=== PATIENT | male | born 1975 | race Caucasian/White ===

== ENCOUNTER 2019-01-16 09:37 | Outpatient (REF) | payer MEDICAID, SELFPAY ==
[2019-01-16 12:22] LABS: ALT 24 U/L (12-78); AST 14 U/L (15-37); Albumin 3.7 g/dL (3.4-5.0); Alkaline Phosphatase 99 U/L (46-116); Anion Gap 8.9 mmol/L (3-11); BUN 19 mg/dL (7-18); Bilirubin, Total 0.4 mg/dL (0.2-1.0); CO2 27.1 mmol/L (21.0-32.0); Calcium 8.6 mg/dL (8.5-10.1); Calculated LDL 114 mg/dL; Chloride 106 mmol/L (98-107); Cholesterol 176 mg/dL (50-200); Glucose 87 mg/dL (70-100); HDL Cholesterol 43 mg/dL (40-60); Potassium 4.4 mmol/L (3.5-5.1); Sodium 142 mmol/L (136-145); Total Protein 6.7 g/dL (6.4-8.2); Triglyceride 97 mg/dL (30-150)
== END 2019-01-16 09:57 ==
LOC: NCHCN 09:37
PROVIDERS: PCP Internal Medicine; Visit Provider Family Medicine
DX: R53.83 Other fatigue (principal); R53.1 Weakness; G47.33 Obstructive sleep apnea (adult) (pediatric); K21.9 Gastro-esophageal reflux disease without esophagitis; Z13.220 Encounter for screening for lipoid disorders
CPT/HCPCS: 80053; 80061; 83721

== ENCOUNTER 2019-11-26 11:08 | Outpatient (CLI) | payer MEDICAID, SELFPAY ==
--- NOTE | 2019-11-26 10:30 | DI.RAD_ITS ---
EXAM: XR SHOULDER LT COMPLETE 2+V CLINICAL HISTORY: pain in left shoulder. TECHNIQUE: 2D digital imaging was performed. COMPARISON: No exams were available for comparison FINDINGS: BONES: No acute fracture is present. No bony destructive lesion is seen. There is spurring at the les ser tuberosity. JOINTS: No dislocation present. Glenohumeral joint space is well maintained. There is mild spurring at the glenoid. SOFT TISSUE: Normal. IMPRESSION: Mild degenerative changes. DATA REPOSITORY: RADIATION DOSE DELIVERED:
== END 2019-11-26 11:28 ==
PROVIDERS: PCP Internal Medicine; Referring Provider Internal Medicine; Visit Provider Student in an Organized Health Care Education/Training Program
DX: M25.512 Pain in left shoulder (principal); M19.012 Primary osteoarthritis, left shoulder
CPT/HCPCS: 73030

== ENCOUNTER 2022-01-12 08:11 | Outpatient (REF) | payer MEDICAID, SELFPAY ==
[2022-01-12 17:37] LABS: ALT 28 U/L (16-63); AST 18 U/L (15-37); Alkaline Phosphatase 88 U/L (46-116); Anion Gap 9.2 mmol/L (3-11); BUN 21 mg/dL (7-18); Bilirubin, Total 0.5 mg/dL (0.2-1.0); CO2 28.8 mmol/L (21.0-32.0); CREATININE 1.2 mg/dL (0.70-1.30); Calcium 8.7 mg/dL (8.5-10.1); Calculated LDL 120 mg/dL (<100); Chloride 109 mmol/L (98-107); Cholesterol 189 mg/dL (<200); Glucose 108 mg/dL (74-106); HDL Cholesterol 52 mg/dL (40-60); Potassium 4.7 mmol/L (3.5-5.1); Sodium 147 mmol/L (136-145); Total Protein 7.3 g/dL (6.4-8.2); Triglyceride 85 mg/dL (<150)
[2022-01-12 17:44] LABS: Vitamin D 25 Total 15.1 ng/mL (30-100)
== END 2022-01-12 08:12 | disposition home or self-care (01) ==
LOC: NCHCN 08:11
PROVIDERS: PCP Internal Medicine; Visit Provider Family Medicine
DX: R53.83 Other fatigue (principal); F32.9 Major depressive disorder, single episode, unspecified; R03.0 Elevated blood-pressure reading, without diagnosis of hypertension; E66.01 Morbid (severe) obesity due to excess calories; Z00.00 Encounter for general adult medical examination without abnormal findings
CPT/HCPCS: 80053; 80061; 82306

== ENCOUNTER 2024-02-15 07:18 | Outpatient (CLI) | payer MEDICAID, SELFPAY ==
[2024-02-15 07:40] LABS: HCT 43.6 % (40.0-50.0); HGB 14.7 g/dL (13.5-17.5); MCH 27.8 pg (27.0-33.0); MCHC 33.7 % (32.0-36.0); MCV 82 fL (80-95); MPV 8.5 fL (8.0-11.0); Platelet Count 278 10^3/uL (130-400); RBC 5.29 10^6/uL (4.36-5.78); RDW 14.5 % (11.8-14.1); RDW-SD 42.7 fL
[2024-02-15 08:23] LABS: ALT 33 U/L (16-63); AST 17 U/L (15-37); Albumin 3.8 g/dL (3.4-5.0); Alkaline Phosphatase 91 U/L (46-116); BUN 17 mg/dL (7-18); Bilirubin, Total 0.57 mg/dL (0.2-1.0); CREATININE 1.2 mg/dL (0.70-1.30); Calcium 8.5 mg/dL (8.5-10.1); Calculated LDL 113 mg/dL (<100); Chloride 104 mmol/L (98-107); Cholesterol 185 mg/dL (<200); Estimated GFR 74.13 (mL/min/1.73m2); Glucose 97 mg/dL (74-106); HDL Cholesterol 53 mg/dL (40-60); Potassium 4.1 mmol/L (3.5-5.1); Sodium 140 mmol/L (136-145); Triglyceride 98 mg/dL (<150); Vitamin D 25 Total 23.1 ng/mL (30-100)
[2024-02-15 12:00] LABS: GGT 24 U/L (15-85)
== END 2024-02-15 07:19 | disposition home or self-care (01) ==
LOC: LBO 07:19
PROVIDERS: PCP Internal Medicine; Visit Provider Family Medicine
DX: Z00.00 Encounter for general adult medical examination without abnormal findings (principal); Z13.220 Encounter for screening for lipoid disorders
CPT/HCPCS: 36415; 80053; 80061; 82306; 85027; 82977

== ENCOUNTER 2025-04-28 14:43 | Outpatient (REF) | payer SELFPAY ==
[2025-04-28 15:52] LABS: HCT 43.0 % (40.0-50.0); HGB 14.4 g/dL (13.5-17.5); MCH 27.7 pg (27.0-33.0); MCHC 33.5 % (32.0-36.0); MCV 83 fL (80-95); MPV 9.5 fL (8.0-11.0); Platelet Count 338 10^3/uL (130-400); RBC 5.19 10^6/uL (4.36-5.78); RDW 14.0 % (11.8-14.1); RDW-SD 42.2 fL; WBC 11.35 10^3/uL (4.4-10.8)
[2025-04-28 16:08] LABS: ALT 31 U/L (16-63); AST 15 U/L (15-37); Albumin 3.9 g/dL (3.4-5.0); Alkaline Phosphatase 97 U/L (46-116); Anion Gap 7.9 mmol/L (3-11); BUN 10 mg/dL (7-18); Bilirubin, Total 0.6 mg/dL (0.2-1.0); CO2 29.1 mmol/L (21.0-32.0); Calcium 8.8 mg/dL (8.5-10.1); Calculated LDL 109 mg/dL (<100); Chloride 105 mmol/L (98-107); Cholesterol 175 mg/dL (<200); Estimated GFR 104.05 (mL/min/1.73m2); Glucose 94 mg/dL (74-106); HDL Cholesterol 49 mg/dL (>or=40); Potassium 4.7 mmol/L (3.5-5.1); Sodium 142 mmol/L (136-145); Total Protein 7.0 g/dL (6.4-8.2); Triglyceride 87 mg/dL (<150)
[2025-04-28 23:32] LABS: PSA, Screening 0.2 ng/mL (<=3.5)
== END 2025-04-28 14:44 | disposition home or self-care (01) ==
LOC: NCHCN 14:43
PROVIDERS: PCP Internal Medicine; Visit Provider Family Medicine
DX: R03.0 Elevated blood-pressure reading, without diagnosis of hypertension (principal); Z12.5 Encounter for screening for malignant neoplasm of prostate; Z13.220 Encounter for screening for lipoid disorders; Z00.00 Encounter for general adult medical examination without abnormal findings
CPT/HCPCS: 80053; 80061; 84153; 85027